=== PATIENT | female | born 1960 | race Caucasian/White ===

== ENCOUNTER 2016-09-02 10:07 | Emergency (ER) | payer OTHER ==
[~2016-09-02] VITALS: Ht 172.7 cm; Wt 71.4 kg
[2016-09-02 10:11] VITALS: TEMP 36.6; Ht 172.7 cm; Wt 71.4 kg
[2016-09-02] MEDS ORDERED: ACETAMINOPHEN 325 MG TAB PO STA (10:33)
[2016-09-02] MEDS ORDERED: MELO7.5T5 PO (10:38)
--- NOTE | 2016-09-02 10:40 | EMERGENCY ROOM VISIT NOTE ---
ED Visit Note First contact with patient: 10:25 CHIEF COMPLAINT: Foot pain HISTORY OF PRESENT ILLNESS: This 50-year-old female patient presents to the emergency department ambulatory complaining of swelling and pain in the right foot at rest and worse with weight bearing. The patient states that she was walking and slipped and injured her foot. The patient rates the pain as sharp and 7/10. The patient has no relief of the pain. The patient is able to walk. No numbness or weakness. No ankle pain. There are no lacerations of the foot. The patient is able to move all of their toes and their ankle without pain. Patient denies previous injury to this foot. REVIEW OF SYSTEMS: GENERAL: A 6 system review of systems was completed with positives and pertinent negatives in the HPI. ALLERGIES: Penicillin MEDICATIONS: Meloxicam PMH: Patient denies SOCIAL HISTORY: The patient does not smoke. She lives locally PHYSICAL EXAM: Vital Signs: Reviewed Nurse's notes, vital signs stable. GENERAL : This is a 56-year-old female, in no acute distress, but appears in pain, well- developed, well-nourished. MUSCULOSKELETAL: There is no visual deformity of the right foot. There is no erythema mild ecchymosis. There is no warmth. There is tenderness and swelling over the dorsal aspect of the right foot. The range of motion of the foot is mildly limited secondary to pain. There is mild tenderness to palpation over the plantar aspect of the foot. Dorsi flexion 5/5 and Plantar flexion 5/5. The skin is intact and there are no lacerations or puncture wounds. Dorsalis pedis pulse 2+. Capillary refill less than 2 seconds. EMERGENCY DEPARTMENT COURSE: I examined the patient. An X-ray of the right foot was reviewed by myself and radiology and reveals metatarsal fractures. The patient was placed in a posterior leg Ortho-Glass splint and instructed on the use of crutches. She declined pain medication. She should contact orthopedics to schedule a follow-up appointment for further evaluation and management. She should return with any worsening symptoms. The patient was discharged home in good condition. RIGHT FOOT MIN 3 VIEWS ROUTINE CLINICAL HISTORY: Right foot pain status post trauma COMPARISON: None. DISCUSSION: The bones are mildly osteopenic. Degenerative changes are present the level the first metatarsal phalangeal joint. There is a transverse fracture to the proximal third metatarsal. There is an equivocal nondisplaced fracture through the proximal second metatarsal. IMPRESSION: 1. Acute transverse fracture through the proximal aspect of the third metatarsal. Equivocal nondisplaced fracture through the proximal second metatarsal. Current/Historical Medications Scheduled Meloxicam (Mobic), 1 TAB PO DAILY Allergies Coded Allergies: Penicillins (Unverified Allergy, Intermediate, RASH, 09/02/16) CHILDHOOD ALLERGY Vital Signs Date Time Temp Pulse Resp B/P Pulse Ox O2 Delivery O2 Flow Rate FiO2 09/02/16 11:49 67 18 139/89 99 Room Air 09/02/16 10:11 36.6 61 17 118/89 98 Room Air Medications Administered Medications (Trade) Dose Ordered Sig/Santi Route Start Time Stop Time Status Last Admin Dose Admin Acetaminophen (Tylenol Tab) 650 mg NOW STAT PO 09/02/16 10:33 09/02/16 10:35 DC 09/02/16 10:56 650 MG Departure Information Impression Primary Impression: Fracture of metatarsal bone Dispostion Home / Self-Care Condition GOOD Referrals Gilberto Jones M.D. Patient Instructions ED Fx Foot, [facility] Additional Instructions Ice and elevation for 24-48 hrs. Ibuprofen, 600mg and Tylenol 1000 mg every 6 hours for the pain. No more than 4 g of Tylenol in 24 hours. Avoid weight bearing and use crutches and splint until seen by orthopedics. Contact their office today to schedule a follow-up appointment. Return with any worsening symptoms. Problem Qualifiers Primary Impression: Fracture of metatarsal bone Encounter type: initial encounter Fracture type: closed Laterality: right
--- NOTE | 2016-09-02 11:22 | DIAGNOSTIC IMAGING REPORT ---
RIGHT FOOT MIN 3 VIEWS ROUTINE CLINICAL HISTORY: Right foot pain status post trauma COMPARISON: None. DISCUSSION: The bones are mildly osteopenic. Degenerative changes are present the level the first metatarsal phalangeal joint. There is a transverse fracture to the proximal third metatarsal. There is an equivocal nondisplaced fracture through the proximal second metatarsal. IMPRESSION: 1. Acute transverse fracture through the proximal aspect of the third metatarsal. Equivocal nondisplaced fracture through the proximal second metatarsal. Electronically signed by: Bryson Sarabia M.D. 09/02/2016 11:20 AM Dictated Date/Time: 09/02/2016 11:18 AM
[2016-09-02 11:49] VITALS: BP 139/89; PULSE 67; O2SAT 99
== END 2016-09-02 12:19 | disposition home or self-care (01) ==
LOC: C.EDC 10:10
DX: S92.331A Displaced fracture of third metatarsal bone, right foot, initial encounter for closed fracture (principal); S92.321A Displaced fracture of second metatarsal bone, right foot, initial encounter for closed fracture; W01.0XXA Fall on same level from slipping, tripping and stumbling without subsequent striking against object, initial encounter; Y93.01 Activity, walking, marching and hiking; Y99.8 Other external cause status

== ENCOUNTER 2017-10-13 13:59 | Emergency (ER) | payer OTHER ==
[~2017-10-13] VITALS: Ht 172.7 cm; Wt 72.0 kg
[~2017-10-13 13:59] MED LIST: MELO7.5T5 PO
[2017-10-13 14:04] VITALS: TEMP 36.8; Ht 172.7 cm; Wt 72.0 kg
--- NOTE | 2017-10-13 14:38 | DIAGNOSTIC IMAGING REPORT ---
L FINGER(S) MIN 2 VIEWS ROUTINE HISTORY: 57 years-old Female LEFT 5TH, EVAL FX acute left finger pain status post trauma COMPARISON: None available TECHNIQUE: 3 views of the left fifth finger FINDINGS: Bones appear mildly demineralized. Mild degenerative changes are seen within the interphalangeal joints. No acute fracture or dislocation. Soft tissues are within normal limits. IMPRESSION: Mild degenerative changes without acute fracture or dislocation. The above report was generated using voice recognition software. It may contain grammatical, syntax or spelling errors. Electronically signed by: Jermain Cruz M.D. 10/13/2017 2:37 PM Dictated Date/Time: 10/13/2017 2:35 PM
--- NOTE | 2017-10-13 14:43 | EMERGENCY ROOM VISIT NOTE ---
ED Visit Note First contact with patient: 13:59 CHIEF COMPLAINT: Left fourth finger injury 20 minutes ago HISTORY OF PRESENT ILLNESS: Patient is a [id number] 57-year-old white female who presents emergency department for evaluation of an injury to her left fourth finger that she sustained roughly 15-20 minutes ago. She tripped up the steps at her apartment complex, landing on her left hand. She states that the fifth finger for most of the force of the fall. She notes pain, pointing to the PIP joint on the radial aspect of the left fifth finger. It is worse when she abducts the finger. She is able to flex and extend fully. There was no cracking or popping and no laceration or bleeding. She did not take any medications, nor perform any interventions for her symptoms, and summoned the ambulance to bring her to the emergency department. REVIEW OF SYSTEMS: Review of systems as per HPI. All other systems reviewed were negative. At least 6 systems reviewed. PMH: Electronic medical records are reviewed and summarized as above/below. See Problem List. SOCIAL HISTORY: Patient lives at home. Employed. PHYSICAL EXAM: Vital Signs: Reviewed Nurse's notes. CONSTITUTIONAL: Patient is a well-appearing 57-year-old white female who is awake and alert and in no acute distress. She has applied ice to the left fifth finger. MUSCULOSKELETAL : Examination of the left fifth finger does not reveal any obvious deformity. She has a very minor abrasion over the medial PIP joint which is tender to palpation. Otherwise, skin is intact, no ecchymosis or soft tissue swelling. The fifth MCP and the fifth DIP are nontender, she can flex and extend fully. Capillary refill less than 2 seconds. Sensation is intact. EMERGENCY DEPARTMENT COURSE: The patient was seen and examined as above. She was given ice pack. X-rays of the left fifth finger were obtained and there was no evidence for acute fracture. Fingers were mookie taped together for support. Differential diagnoses included fracture, sprain, dislocation. Supportive care measures were discussed. Medication reconciliation: I attest that I have personally reviewed the patient' s current medication list. Blood pressure screening : Patient was found to have normal blood pressure on screening and does not require follow-up. L FINGER(S) MIN 2 VIEWS ROUTINE HISTORY: 57 years-old Female LEFT 5TH, EVAL FX acute left finger pain status post trauma COMPARISON: None available TECHNIQUE: 3 views of the left fifth finger FINDINGS: Bones appear mildly demineralized. Mild degenerative changes are seen within the interphalangeal joints. No acute fracture or dislocation. Soft tissues are within normal limits. IMPRESSION: Mild degenerative changes without acute fracture or dislocation. Problem List Medical Problems: (1) Fracture of metatarsal bone Status: Resolved Current/Historical Medications Scheduled Meloxicam (Mobic), 15 MG PO DAILY Allergies Coded Allergies: Penicillins (Unverified Allergy, Intermediate, RASH, 10/13/17) CHILDHOOD ALLERGY Vital Signs Date Time Temp Pulse Resp B/P (MAP) Pulse Ox O2 Delivery O2 Flow Rate FiO2 10/13/17 14:54 57 16 120/80 96 10/13/17 14:04 36.8 66 18 146/81 99 Room Air Departure Information Impression Primary Impression: Sprain of finger of left hand Referrals Ana Pham D.O. (PCP) Patient Instructions [facility] Additional Instructions Ibuprofen(Motrin, Advil) may be used for fever or pain. Use 600mg every six hours as needed. Take with food. Avoid using more than 2400mg in a 24 hour period. Do not use 2400mg per day for more than three consecutive days without physician direction. Prolonged inappropriate use can lead to stomach upset or ulcers. This medication can be taken if you need to drive, work, or perform activities which may be dangerous when taking narcotic pain medication. (AND/OR) Acetaminophen(Tylenol) may be used for fever or pain. Use 1000mg every six hours as needed. Avoid using more than 3000mg in a 24 hour period. This medication can be taken if you need to drive, work, or perform activities which may be dangerous when taking narcotic pain medication. Ice compresses for 20 minutes at a time four times daily for 2-3 days. May mookie tape for support as needed. Rest and elevate your injury. May resume normal activity as your pain allows. Continue current medications. Followup with your family doctor or orthopedic surgery if no improvement in 5-7 days. Problem Qualifiers Primary Impression: Sprain of finger of left hand Encounter type: initial encounter Finger: little finger Sprain of finger site: interphalangeal joint Qualified Codes: S63.637A - Sprain of interphalangeal joint of left little finger, initial encounter
[2017-10-13 14:54] VITALS: BP 120/80; PULSE 57; O2SAT 96
== END 2017-10-13 14:55 | disposition home or self-care (01) ==
LOC: EDBD 13:59 → C.EDD 14:00
DX: S63.637A Sprain of interphalangeal joint of left little finger, initial encounter (principal); W19.XXXA Unspecified fall, initial encounter

== ENCOUNTER 2024-08-19 11:34 | Observation (INO) ==
--- NOTE | 2024-08-15 10:58 | Anesthesiology Consultation ---
Date of Service August 15, 2024 Assessment & Plan (1) Encounter for pre-operative examination: Infectious disease screening: Per assessment on 08/15/24- No known recent infectious disease contacts or current infectious disease symptoms. Chart Review Chart Review: Acceptable Risk for Surgery and Patient NOT seen in Pre Admission Testing History Surgery Operation Date: 08/19/24 13:00 Proposed Procedures p Open Reduction Internal Fixation Right Proximal Displaced Humerus Fracture - Wilfredo Kelly DO Operation Date: 08/19/24 13:00 Proposed Procedures p Open Reduction Internal Fixation Right Proximal Displaced Humerus Fracture - Wilfredo Kelly DO Height/Weight Height: 5 ft 8.5 in Weight: 70.307 kg Allergies Allergy/AdvReac Type Severity Reaction Status Date / Time Penicillins Allergy Intermediate RASH Unverified 08/15/24 10:07 Medications Home Medications Medication Instructions Recorded Confirmed Last Taken oxycodone 5 mg tablet 5 - 10 mg (1 - 2 x 5 mg) PO Q6H 08/12/24 08/15/24 Unknown PRN pain #14 tabs Past Medical History Medical History Closed right humeral fracture Past Family History Family History Other No family history of adverse response to anesthesia Past Surgical History Surgical History Hx of colonoscopy Social History Smoking Status: Never smoker Do You Dip or Chew Tobacco: No Hx Alcohol Use: Yes alcohol intake frequency: a few times a month Hx Substance Use: No substance use type: does not use Lab Results Anesthesia Preop Results Results Anesthesia Widget: WBC 7.71 K/ul (4.8-10.8) 08/14/24 Hgb 12.9 g/dl (12.0-16.0) 08/14/24 Hct 38.6 % (37.0-47.0) 08/14/24 Plt 156 K/uL (130-400) 08/14/24 Na 141 mmol/L (136-145) 08/14/24 K 3.6 mmol/L (3.5-5.1) 08/14/24 Cl 106 mmol/L (98-107) 08/14/24 CO2 27 mmol/L (21-32) 08/14/24 BUN 23 mg/dl (6-23) 08/14/24 Creat 0.79 mg/dl (0.6-1.2) 08/14/24 Glucose Level 87 mg/dl (70-99(Fasting)) 08/14/24 PT 10.4 Seconds (9.0-12.0) 08/14/24 PTT 26 Seconds (21-31) 08/14/24 INR 1.0 (0.9-1.1) 08/14/24 Blood Type B Positive 08/14/24 Antibody Screen NEGATIVE 08/14/24 Testing Electrocardiogram Date: 08/14/24 NSR at 77bpm. NS STA.
[~2024-08-19 11:34] MED LIST changes: -MELO7.5T5 PO; +dexAMETHasone 4 MG TAB PO SCH
[2024-08-19] MEDS ORDERED: ONDANSETRON INJ 2 MG/ML 2 ML VIAL ONE (12:17)
[2024-08-19] MEDS ORDERED: LIDOCAINE 2% 2 ML VIAL/AMP(20MG/ML) INFIL ONE (12:17)
[2024-08-19] MEDS ORDERED: fentaNYL citrate PF 100 MCG/2 ML VIAL ONE (12:17)
[2024-08-19] MEDS ORDERED: PROPOFOL IV EMULSION 10 MG/ML 20 ML VIAL IV ONE (12:17)
[2024-08-19] MEDS ORDERED: MIDAZOLAM HCL 1 MG/ML 2ML VIAL ONE (12:17)
--- NOTE | 2024-08-19 12:30 | History & Physical Bridge Note ---
Date of Service August 19, 2024 History & Physical Bridge Note I have examined the patient, reviewed the History & Physical and in the interval since the performance of the History & Physical I have noted the following changes of clinical significance: no changes noted
[2024-08-19] MEDS: GABAPENTIN 300 MG CAP PO SCH (12:43)
[2024-08-19] MEDS: LR 15ML/HR IV SCH (12:43)
[2024-08-19] MEDS: dexAMETHasone**PF** 10 MG/ML VIAL IV SCH (12:43)
[2024-08-19] MEDS: LR 60ML/HR IV SCH (12:43)
[2024-08-19] MEDS: FAMOTIDINE 20 MG TAB PO SCH (12:43)
[2024-08-19] MEDS: ACETAMINOPHEN 500 MG TAB PO SCH ×2 (12:44→21:24)
[2024-08-19] MEDS ORDERED: BUPIVACAINE 0.5 % 5 MG/1 ML PF 10ML VIAL ONE (12:59)
[2024-08-19] MEDS ORDERED: ROCURONIUM BROMIDE 10 MG/ML 5 ML VIAL IV ONE (13:00)
[2024-08-19] MEDS ORDERED: SODIUM CHLORIDE 0.9% PF INJ 10 ML VIAL ONE (13:04)
[2024-08-19] MEDS: TRANEXAMIC ACID 1,000 MG **IV Pre-op IV SCH (13:05)
[2024-08-19] MEDS: ceFAZolin 2000MG 2,000 MG/15 ML SYR IV SCH (13:21)
[2024-08-19] MEDS ORDERED: PHENYLEPHRINE 100MCG/ML 5ML SYR ONE (14:11)
[2024-08-19] MEDS ORDERED: ePHEDrine sulfate 50 MG/5 ML SYR ONE (14:11)
[2024-08-19] MEDS: TRANEXAMIC ACID 1,000 MG **IV Intra-op IV SCH (14:53)
[2024-08-19] MEDS: BUPIVACAINE/EPINEPHRINE 0.5% MPF 1:200,000 30 ML VIAL ONE (14:56)
--- NOTE | 2024-08-19 14:59 | Operative Report ---
PG Post Operative Report Pre & Post Diagnosis Operation Date: 08/19/24 13:00 Pre-Op Diagnosis: Right proximal humerus fracture Post-Op Diagnosis: Right proximal humerus fracture I identified the patient and participated in the time-out.: Yes Procedure Operation Date: 08/19/24 13:00 Actual Procedures p Open Reduction Internal Fixation Right Proximal Humerus Fracture(Right) - Wilfredo Kelly DO Surgeon Wilfredo Kelly DO Board Certified Behavioral Analyst Jermain Espinoza PA-C Estimated Blood Loss 100 Findings Consistent with Post-Op Diagnosis Specimens None Description of Procedure On August 19, 2024 Mary arrived at [facility] for the above procedure. She was seen in the preoperative holding area and the operative extremity identified and signed. She is given a preoperative antibiotic and a right interscalene nerve block. She was taken back the operating room and laid on table in supine position. She was put under general anesthesia. She was put into the beachchair position. The right shoulder was prepped and draped in sterile fashion. A timeout was done. The patient and the operative extremity was properly identified. A deltopectoral approach was used. Dissection was taken down through the fascia. The deltoid was retracted laterally and the conjoined tendon was retracted medially. Anterior shoulder was easily identified. The long head of the biceps tendon was identified to better align the fracture. The fracture fragment was then exposed. It was basically at 2 part humeral neck fracture. The fracture was then reduced. Fluoroscopic images were used to confirm anatomic reduction. A Synthes 3 hole 3.5 mm proximal humeral locking plate was then placed. A compression screw was placed first to hold the plate in place. The fracture alignment was maintained and a locking screw was placed proximally. Fluoroscopic images confirmed near anatomic alignment of the fracture and good placement of the plate. The remained in the proximal locking screws were then placed. Most of these were placed under direct fluoroscopic assistance to ensure no cut out of the screws. 2 distal humeral locking screws were placed and the compression screw was exchanged for a locking screw. Final fluoroscopic images showed acceptable alignment of the fracture and good placement of the plate. All screws were tightened. The surgical site was then irrigated. The deltopectoral interval was closed with 2-0 Vicryl suture. Skin was closed with 3-0 Vicryl and ángela. She was then placed in a Silverlon dressing. She was given an arm sling. She was then extubated and transferred to a [facility]. She was taken to the postanesthesia care unit in stable condition. She tolerated the procedure well. Jermain Espinoza PA-C, was present for the entire procedure. He was critical for patient positioning, prepping, draping, retraction exposure, wound closure and application of sterile dressing. I attest to the content of the Intraoperative Record and any orders documented therein. Any exceptions are noted below.
[2024-08-19] MEDS ORDERED: SUGAMMADEX SODIUM 200 MG/2 ML VIAL IV ONE (15:00)
--- NOTE | 2024-08-19 15:11 | Fluoroscopy Report ---
FL humerus RT 2V CLINICAL HISTORY: ORIF PROXIMAL DISPLACED HUMERUS FX COMPARISON STUDY: Right shoulder radiographs August 12, 2024. FLUOROSCOPY TIME: 44 seconds. Ka,r: 3.1312 mGy FLUOROSCOPIC IMAGES: 2 FINDINGS: Fluoroscopy was provided during open reduction and internal fixation of the right humeral n cliff fracture with plate and screws. Fracture alignment has significantly improved and is near anatomi c. The hardware is intact and there are no unexpected radiopaque foreign bodies. IMPRESSION: Fluoroscopy provided during open reduction and internal fixation of the right humeral ne ck fracture. ACT 112: Negative or not required by law. Electronically signed by: Alexys Rincon M.D. 08/19/2024 3:09 PM
--- NOTE | 2024-08-19 15:42 | XRay Report ---
XR shoulder RT min 2V routine CLINICAL HISTORY: Post shoulder surgery COMPARISON: 08/12/2024 FINDINGS: There is interval plate-screw fixation of the proximal humerus with anatomic alignment. Th ere is expected soft tissue gas. Skin ángela are present. IMPRESSION: Anatomic alignment. ACT 112: Negative or not required by law. Electronically signed by: Berry Segal M.D. 08/19/2024 3:40 PM
[2024-08-19] MEDS ORDERED: oxyCODONE HCL IR 5 MG TAB (IMMEDIATE RELEASE) PO PRN (16:55)
[2024-08-19] MEDS ORDERED: traMADol HCL 50 MG TABLET PO PRN (16:55)
[2024-08-19] MEDS ORDERED: METOCLOPRAMIDE HCL INJ 5 MG/ML 2 ML VIAL IV PRN (16:55)
[2024-08-19] MEDS ORDERED: HYDROmorphone INJ 0.5 MG/0.5 ML SYR IV PRN (16:55)
[2024-08-19] MEDS ORDERED: MAGNESIUM HYDROXIDE SUSP 30 ML UDC PO PRN (16:55)
[2024-08-19] MEDS ORDERED: bisacodyL 10 MG SUPP PR PRN (16:55)
[2024-08-19] MEDS ORDERED: NALOXONE HCL 0.4 MG/1 ML VIAL/CARP IV PRN (16:55)
[2024-08-19] MEDS ORDERED: ONDANSETRON INJ 2 MG/ML 2 ML VIAL IV PRN (16:55)
[2024-08-19] MEDS ORDERED: INFLUENZA VACC TS2024-25(6m+)/PF (IIV3) 0.5mL Syr IM ONE (17:03)
--- NOTE | 2024-08-19 17:05 | Anesthesiology Progress Note ---
Date of Service August 19, 2024 Anesthesia Post Procedure Vital Signs Vital Signs: Temp Pulse Pulse Resp BP Pulse Ox O2 Del Method 08/19/24 16:45 36.2 C L 72 16 102/66 98 Room Air 08/19/24 16:15 36.3 C L 64 12 105/64 98 Room Air 08/19/24 16:00 66 20 111/66 98 Room Air 08/19/24 15:50 67 19 106/65 98 Room Air 08/19/24 15:40 68 18 109/70 96 Room Air 08/19/24 15:30 74 20 119/77 100 Room Air 08/19/24 15:20 71 20 113/65 100 Oxymask 08/19/24 15:18 36.2 C L 72 14 106/64 100 Oxymask 08/19/24 12:14 36.8 C 71 20 144/50 H 97 Room Air O2 Flow Rate 08/19/24 16:45 08/19/24 16:15 08/19/24 16:00 08/19/24 15:50 08/19/24 15:40 08/19/24 15:30 08/19/24 15:20 4 08/19/24 15:18 6 08/19/24 12:14 Pain Intensity Right Arm: Pain Intensity: 4 Transfer of Care Handoff Completed per policy Notes Mental Status: alert / awake / arousable and participated in evaluation Patient Amnestic to Procedure: Yes Nausea / Vomiting: adequately controlled Pain: adequately controlled Airway Patency, RR, SpO2: stable & adequate BP & HR: stable & adequate Hydration State: stable & adequate Anesthetic Complications: no major complications apparent and Pt Satisfied with anesthetic care
[2024-08-19] MEDS: KETOROLAC TROMETHAMINE 15 MG/ML VIAL IV SCH (17:15)
[2024-08-19] MEDS: ceFAZolin 1000MG 1,000 MG/7.5 ML SYR IV SCH (21:24)
[2024-08-19] MEDS: DOCUSATE SODIUM 100 MG CAP PO SCH (21:24)
[2024-08-19] MEDS: SENNA 8.6 MG TAB PO SCH (21:24)
[2024-08-20] MEDS: MULTIVITAMIN TAB PO SCH (07:40)
[2024-08-20] MEDS: ASPIRIN 81 MG CHEW PO SCH (07:41)
[2024-08-20] MEDS: dexAMETHasone 4 MG TAB PO SCH (07:41)
[2024-08-20 11:34] VITALS: BP 121/77; PULSE 83; RESP 18; TEMP 98.1; O2SAT 96
--- NOTE | 2024-08-20 12:44 | Orthopedic Progress Note ---
Date of Service August 20, 2024 Assessment & Plan (1) Closed right humeral fracture: Assessment: Status post open reduction internal fixation right proximal displaced humerus fracture. Plan: Overall, she is doing quite well today with good pain control right shoulder. She will work with physical therapy later this morning to work on ambulation exercises. She should remain in her sling until she is status post 4 weeks. She can be discharged home later this morning pending formal physical therapy evaluation recommendations. She will follow-up with orthopedics in 2 weeks for postoperative management. Prescription sent to pharmacy. She verbalized understanding and agrees with this plan. Subjective . Mary was seen this morning resting comfortably in no apparent distress. She notes that her pain is well-controlled to the right shoulder. She has yet to work physical therapy this morning. She has been up and ambulate with no significant issues. She denies any concerns with her surgical incision site. She denies any active bleeding, discharge, or signs of infection. She denies any neck pain, distal extremity pain, numbness/ting, or paresthesias. She is in her sling as directed. She denies any other concerns today. Review of Systems All systems reviewed & are unremarkable except as noted in HPI & below. Physical Exam . A physical examination of the right shoulder, her dressings are clean, dry, and intact with no signs of active bleeding, discharge, or signs of infection. Arm is in sling as directed. Limited range of motion secondary to postoperative stiffness and soreness. Normal range of motion at the elbow, wrist, and all 5 digits. +2 radial pulse. Less than 2-second capillary refill. Normal sensation. Neurovascular intact. Results & Data Results & Data Laboratory Results . Diagnostic Findings . Humerus X-Ray 08/19/24 13:00 FL humerus RT 2V CLINICAL HISTORY: ORIF PROXIMAL DISPLACED HUMERUS FX COMPARISON STUDY: Right shoulder radiographs August 12, 2024. FLUOROSCOPY TIME: 44 seconds. Bethanyr: 3.1312 mGy FLUOROSCOPIC IMAGES: 2 FINDINGS: Fluoroscopy was provided during open reduction and internal fixation of the right humeral neck fracture with plate and screws. Fracture alignment has significantly improved and is near anatomic. The hardware is intact and there are no unexpected radiopaque foreign bodies. IMPRESSION: Fluoroscopy provided during open reduction and internal fixation of the right humeral neck fracture. ACT 112: Negative or not required by law. Electronically signed by: Alexys Rincon M.D. 08/19/2024 3:09 PM Shoulder X-Ray 08/19/24 15:17 XR shoulder RT min 2V routine CLINICAL HISTORY: Post shoulder surgery COMPARISON: 08/12/2024 FINDINGS: There is interval plate-screw fixation of the proximal humerus with anatomic alignment. There is expected soft tissue gas. Skin ángela are present. IMPRESSION: Anatomic alignment. ACT 112: Negative or not required by law. Electronically signed by: Berry Segal M.D. 08/19/2024 3:40 PM PG Care Time/CCT Total # of Minutes Spent Total Time Spent with Patient: Total time spent is greater than 50% in coordination of care (as documented) at patient's floor/unit and/or counseling patient: Coding Level of Care Code 70829 Post Operative Follow-Up Diagnoses Closed right humeral fracture S42.301A
--- NOTE | 2024-08-20 12:45 | Discharge Summary ---
Date of Service August 20, 2024 Principal Diagnosis Same as "Discharge Diagnosis" noted below under Discharge Instructions. Discharge Exam . A physical examination of the right shoulder, her dressings are clean, dry, and intact with no signs of active bleeding, discharge, or signs of infection. Arm is in sling as directed. Limited range of motion secondary to postoperative stiffness and soreness. Normal range of motion at the elbow, wrist, and all 5 digits. +2 radial pulse. Less than 2-second capillary refill. Normal sensation. Neurovascular intact. Discharge Data Procedures Performed Operation Date: 08/19/24 13:00 Actual Procedures p Open Reduction Internal Fixation Right Proximal Displaced Humerus Fracture(Right) - Wilfredo Kelly DO Ordered Studies 08/19/24 05:00 US - OR guided needle placemen Routine 08/19/24 13:00 FL humerus RT 2V Routine Hospital Course (1) Closed right humeral fracture: On August 19, 2024 Mary arrived at 9 in the hospital and underwent a open reduction internal fixation of the right proximal displaced humerus fracture performed by Dr. Kelly. She had a general anesthetic. Postoperatively, she was transferred to the PACU for immediate postoperative management then transferred to the general orthopedic floor in stable condition. Her hospital course was uneventful. On postoperative day #1, her vital signs are stable and her pain is well-controlled. She participated well with physical therapy working on range of motion exercises. She was then discharged home in stable condition. She will follow-up with orthopedics in 2 weeks for continued postoperative management or sooner if needed. PG Care Time/CCT Total # of Minutes Spent Total Time Spent with Patient: Total time spent is greater than 50% in coordination of care (as documented) at patient's floor/unit and/or counseling patient: Discharge Plan Discharge Items Patient Disposition: Home - Self-Care Reason For Visit: Displaced Right Humerus Fracture Discharge Diagnosis: Same Activity: Per Instructions section Non-emergency contact: Primary Care Provider Call non-emergency contact if: your temperature is above 101.5, your wound has increased redness, your wound has increased drainage and your wound pain has increased Follow-up/Referrals: Ann-Marie Rasmussen PA-C [Primary Care Provider] - Diet: Regular Addtl Attending Provider Instructions: Activity and Therapy Recommendations: * Wear your sling for 4 weeks, unless otherwise instructed. You may remove your sling to shower and to dress, but otherwise, you should be in your sling at all times, including while sleeping * The shoulder replacement is very stable and you can use your hand while in the sling * Physical Therapy should start about 3-5 days from your day of surgery. Therapy will last about 8-12 weeks * You were shown a series of exercises in the hospital. Do these exercises daily including the exercises you were shown in physical therapy. * You may return to previous diet. Medications: * Narcotic You will likely be sent home from the hospital with a prescription for the narcotic pain medication that worked best throughout your stay. * Other medications may be prescribed for specific circumstances. If you have any questions, please call the office at . * Resume previous home medications unless otherwise instructed. Dressing Care: If the incision is not draining then you may leave the ángela open to air. If there is a little bit of drainage or if the ángela are getting stuck on your clothing then cover the incision with a dry dressing. The ángela will be removed at your 2 week follow-up appointment. Showering: You may shower 5 days from the day of surgery. Let the soapy shower water run over the ángela and pat them dry. Do not scrub or soak the incision. Things To Watch For: * Drainage from the incision site that occurs more than one week after your surgery. * Increased redness at the incision site. * Fever above 102 degrees Fahrenheit. * Unusual chest pain or shortness of breath. * Call [facility] at [phone] with any of the above problems. Follow-Up Visit: Follow-up with Dr. Kelly 2-3 weeks after your day of surgery. An appointment was probably scheduled when you signed-up for surgery in the office. If you have any questions call . Office Instructions: More detailed instructions as well as Frequently Asked Questions were provided in a folder by our office when you signed-up for surgery. Please review these instructions when you get home. If you have any further questions or concerns, please feel free to call the office at [phone]. Pending Studies at Discharge: No Stand-Alone Forms: My [facility], Smoking Cessation Medications and DC Order Prescriptions: New oxycodone 5 mg Tablet 5 mg PO Q6H PRN (Reason: pain) Qty: 30 0RF cefadroxil 500 mg capsule 500 mg PO BID 10 Days Qty: 20 0RF Continued multivitamin Tablet 1 tab PO DAILY aspirin 325 mg Tablet 162.5 mg PO DAILY Discontinued oxycodone 5 mg tablet 5 - 10 mg PO Q6H PRN (Reason: pain) Qty: 14 0RF Discharge Orders: Discharge Order (Routine); Ordered 08/20/24 Ordered By: Bib Espinoza Admission Data Admit Date/Time: 08/19/24 15:17 Attending Provider: Wilfredo Kelly Admit Provider: Wilfredo Kelly Primary Care Provider: Ann-Marie Rasmussen Other Interventions: Discharge Summary Assessment (RN) Last Done: 08/20/24 10:11
== END 2024-08-20 12:42 | disposition home or self-care (01) ==
LOC: 3N 11:34 → ASU 11:34